=== PATIENT | female | born 1990 | race Caucasian/White ===

== ENCOUNTER 2020-08-17 05:31 | Day surgery (SDC) | payer OTHER ==
[2020-08-10 17:22] VITALS: BMI 24.3
[2020-08-17] MEDS ORDERED: PROPOFOL 20 ML ONE ×2 (09:47→13:10)
[2020-08-17] MEDS ORDERED: MIDAZOLAM HCL 2 MG/2 ML SINGLE DOSE VIAL ONE (09:47)
[2020-08-17] MEDS ORDERED: LIDOCAINE 1%/EPI 1:100000 (50 ML MULTI DOSE VIAL) ONE (12:33)
[2020-08-17] MEDS ORDERED: ceFAZolin SODIUM 1 GM VIAL IVPB ONE (12:38)
[2020-08-17] MEDS ORDERED: LIDOCAINE 1%/EPI 1:100000 (20 ML MULTI DOSE VIAL) IJ ONE (12:51)
[2020-08-17] MEDS ORDERED: ceFAZolin SODIUM 1 GM VIAL ONE (14:38)
[2020-08-17] MEDS ORDERED: DEXAMETHASONE SOD PHOSPHATE 4 MG/1 ML VIAL ONE (14:38)
[2020-08-17] MEDS ORDERED: KETOROLAC TROMETHAMINE 30 MG/1 ML VIAL ONE (14:38)
[2020-08-17 14:56] VITALS: TEMP 97.7
[2020-08-17] MEDS ORDERED: oxyCODONE HCL 5 MG TABLET PO PRN (15:16)
[2020-08-17] MEDS ORDERED: oxyCODONE HCL 5 MG TABLET PO ONE (15:25)
[2020-08-17 15:29] VITALS: BP 110/56; PULSE 67
== END 2020-08-17 16:20 | disposition home or self-care (01) ==
LOC: JASU-SURG 05:31
PROVIDERS: ATTEND Obstetrics & Gynecology
PROC: 0U9L00Z Drainage of Vestibular Gland with Drainage Device, Open Approach (ICD-10-PCS; principal; 2020-08-17 10:30)
DX: N75.1 Abscess of Bartholin's gland (principal)
CPT/HCPCS: 81025; 86850; 86900; 86901; 87070; 87205; 94760